=== PATIENT | male | born 1975 | race Caucasian/White ===

== ENCOUNTER 2021-10-15 13:56 | Emergency (ER) | payer OTHER ==
[2021-10-15 14:09] VITALS: BP 146/98; PULSE 96; RESP 17; TEMP 98.3; BMI 36.8
[2021-10-15] MEDS ORDERED: KETOROLAC TROMETHAMINE 30 MG/1 ML VIAL IM ONE (15:15)
[2021-10-15] MEDS ORDERED: KETOROLAC TROMETHAMINE 30 MG/1 ML VIAL ONE (15:15)
== END 2021-10-15 15:20 | disposition home or self-care (01) ==
LOC: JERFT 13:56
PROC: 3E0233Z Introduction of Anti-inflammatory into Muscle, Percutaneous Approach (ICD-10-PCS; principal; 2021-10-15)
DX: S46.212A Strain of muscle, fascia and tendon of other parts of biceps, left arm, initial encounter (principal); X50.0XXA Overexertion from strenuous movement or load, initial encounter
CPT/HCPCS: 73030-TC-LT-FY; 99284-25

== ENCOUNTER 2021-11-15 04:20 | Day surgery (SDC) | payer OTHER ==
[2021-11-09 12:43] VITALS: BMI 35.7
[2021-11-15] MEDS ORDERED: PROPOFOL 20 ML ONE (07:16)
[2021-11-15] MEDS ORDERED: MIDAZOLAM HCL 2 MG/2 ML SINGLE DOSE VIAL ONE (07:17)
[2021-11-15] MEDS ORDERED: LIDOCAINE HCL/PF 2% SDV 5ML VIAL ONE (07:17)
[2021-11-15] MEDS ORDERED: ROPIVACAINE HCL 0.5% 30ML VIAL ONE (07:31)
[2021-11-15] MEDS ORDERED: DEXAMETHASONE SOD PHOSPHATE 4 MG/1 ML VIAL ONE (07:32)
[2021-11-15] MEDS ORDERED: ceFAZolin SODIUM 1 GM VIAL IVPB ONE (08:31)
[2021-11-15] MEDS ORDERED: ceFAZolin SODIUM 1 GM VIAL ONE (08:32)
[2021-11-15] MEDS ORDERED: KETOROLAC TROMETHAMINE 30 MG/1 ML VIAL ONE (09:11)
[2021-11-15] MEDS ORDERED: ONDANSETRON 4 MG/2 ML VIAL IVPUSH PRN (09:43)
[2021-11-15] MEDS ORDERED: oxyCODONE HCL 5 MG TABLET PO PRN ×2 (09:43)
[2021-11-15] MEDS ORDERED: LACTATED RINGERS SOLUTION 1,000 ML IV SCH (09:45)
[2021-11-15 12:11] VITALS: RESP 18
[2021-11-15 12:21] VITALS: BP 152/89; PULSE 82; TEMP 98.2
== END 2021-11-15 12:00 | disposition home or self-care (01) ==
LOC: JASU-SURG 04:20
PROVIDERS: ATTEND Orthopaedic Surgery
PROC: 0RBK4ZZ Excision of Left Shoulder Joint, Percutaneous Endoscopic Approach (ICD-10-PCS; 2021-11-15)
PROC: 0RNK4ZZ Release Left Shoulder Joint, Percutaneous Endoscopic Approach (ICD-10-PCS; principal; 2021-11-15 08:00)
DX: S46.212A Strain of muscle, fascia and tendon of other parts of biceps, left arm, initial encounter (principal); M25.812 Other specified joint disorders, left shoulder; X58.XXXA Exposure to other specified factors, initial encounter; Y93.9 Activity, unspecified; Y92.9 Unspecified place or not applicable; Y99.9 Unspecified external cause status
CPT/HCPCS: 94760